=== PATIENT | male | born 1960 | race Native Hawaiian/Other Pacific Islander ===

== ENCOUNTER 2016-04-20 10:20 | Outpatient (CLI) | payer OTHER ==
[2016-04-20] MEDS ORDERED: ASPIRIN325 M1 OR (14:11)
[2016-04-20] MEDS ORDERED: SPIRIVA IN (14:11)
[2016-04-20] MEDS ORDERED: CLOP75TA2 PO (14:11)
[2016-04-20] MEDS ORDERED: ALBUTEROL0.083 % IN (14:12)
[2016-04-20] MEDS ORDERED: DULERA1 AE1 IN (14:12)
[2016-04-20] MEDS ORDERED: TRAM50TA PO (14:12)
== END 2016-04-20 10:21 | disposition home or self-care (01) ==
LOC: AMB 10:20
DX: R06.09 Other forms of dyspnea (principal)
CPT/HCPCS: A0425; A0429

== ENCOUNTER 2016-04-20 10:22 | Inpatient (IN) | payer OTHER ==
[~2016-04-20] VITALS: Ht 160 cm; Wt 63.5 kg
[2016-04-20 10:22] VITALS: BP 128/79; TEMP 98.2
[2016-04-20 12:41] LABS: POTASSIUM 3.8 mmol/L (3.6-5.2); SODIUM 134 mmol/L (136-145)
[2016-04-20 13:50] LABS: PLATELET COUNT 210 K/uL (142-355)
[2016-04-20 14:04] VITALS: BP 129/79
[2016-04-20] MEDS ORDERED: SPIRIVA IN (14:11)
[2016-04-20] MEDS ORDERED: CLOP75TA2 PO (14:11)
[2016-04-20] MEDS ORDERED: ASPIRIN325 M1 OR (14:11)
[2016-04-20] MEDS ORDERED: ALBUTEROL0.083 % IN (14:12)
[2016-04-20] MEDS ORDERED: TRAM50TA PO (14:12)
[2016-04-20] MEDS ORDERED: DULERA1 AE1 IN (14:12)
[2016-04-20 17:33] VITALS: BP 143/85; TEMP 98.6; Ht 160 cm; Wt 63.5 kg
[2016-04-20 20:00] VITALS: BP 135/88; TEMP 97.9
[2016-04-21] VITALS (7 sets, daily range): BP systolic 107–137; BP diastolic 66–80; TEMP 97.5–98.1
[2016-04-21 04:49] LABS: PLATELET COUNT 224 K/uL (142-355)
[2016-04-21 05:09] LABS: POTASSIUM 3.5 mmol/L (3.6-5.2); SODIUM 133 mmol/L (136-145)
[2016-04-22 04:00] VITALS: BP 135/77; TEMP 97.9
[2016-04-22 08:00] VITALS: BP 117/74; TEMP 97.9
[2016-04-22 12:00] VITALS: BP 122/76; TEMP 97.7
== END 2016-04-22 15:24 | disposition home or self-care (01) | DRG 192 ==
LOC: ED 10:22 → MED/SURG 15:04
PROVIDERS: Emergency Medicine; ADMIT Specialist
DX: J44.1 Chronic obstructive pulmonary disease with (acute) exacerbation (principal); R06.09 Other forms of dyspnea; R53.1 Weakness; R52 Pain, unspecified; I25.2 Old myocardial infarction
CPT/HCPCS: 36415; 36600; 80048; 80053; 80307; 82550; 82553; 82805; 83735; 83880; 84100; 84484; 85027; 87804; 93005; 94640; 94664; 94760; 96372; 96374; 99284; G0479; J1644; J1885; J2930

== ENCOUNTER 2018-05-31 13:19 | Outpatient (CLI) | payer OTHER ==
[~2018-05-31 13:19] MED LIST: ALBUTEROL0.083 % IN; ASPIRIN325 M1 OR; CLOP75TA2 PO; DULERA1 AE1 IN; SPIRIVA IN; TRAM50TA PO
== END 2018-05-31 20:28 | disposition home or self-care (01) ==
LOC: US 13:19
DX: R42 Dizziness and giddiness (principal); E04.1 Nontoxic single thyroid nodule

== ENCOUNTER 2018-08-18 08:30 | Outpatient (CLI) | payer OTHER | END 2018-08-18 23:43 | disposition home or self-care (01) | LOC: NM 08:30 | DX: R07.9 Chest pain, unspecified (principal) | CPT/HCPCS: A9500; J2785 ==

== ENCOUNTER 2019-04-12 10:25 | Outpatient (CLI) | payer OTHER ==
[2019-04-12 11:05] LABS: PLATELET COUNT 291 K/uL (142-355)
[2019-04-12 11:07] LABS: POTASSIUM 4.4 mmol/L (3.6-5.2)
== END 2019-04-12 19:21 | disposition home or self-care (01) ==
LOC: LABW 10:25
PROVIDERS: Registered Nurse
DX: E78.49 Other hyperlipidemia (principal); D45 Polycythemia vera; I10 Essential (primary) hypertension; E55.9 Vitamin D deficiency, unspecified; Z79.899 Other long term (current) drug therapy; R53.82 Chronic fatigue, unspecified
CPT/HCPCS: 36415; 80053; 80061; 82306; 84439; 84443; 85027

== ENCOUNTER 2020-05-04 23:10 | Emergency (ER) | payer OTHER ==
[~2020-05-04] VITALS: Ht 160 cm; Wt 63.5 kg
[2020-05-05 00:02] LABS: PLATELET COUNT 293 K/uL (142-355)
[2020-05-05 00:21] LABS: PARTIAL THROMBOPLASTIN TIME 24.4 SECONDS (24.5-33.6)
[2020-05-05 00:23] LABS: POTASSIUM 4.1 mmol/L (3.6-5.2); SODIUM 136 mmol/L (136-145)
[2020-05-05 02:03] VITALS: BP 124/73; TEMP 98.9
== END 2020-05-05 02:05 | disposition home or self-care (01) ==
LOC: ED 23:10
PROVIDERS: Family Medicine
DX: J44.1 Chronic obstructive pulmonary disease with (acute) exacerbation (principal); F17.210 Nicotine dependence, cigarettes, uncomplicated
CPT/HCPCS: 36415; 80053; 82550; 83880; 84484; 85027; 85379; 85610; 85730; 93005; 94640; 94664; 96374; 99284; J2930; Q9963

== ENCOUNTER 2022-03-24 11:16 | Emergency (ER) | payer OTHER ==
[~2022-03-24] VITALS: Ht 160 cm; Wt 72.6 kg
[2022-03-24 11:30] VITALS: TEMP 98.1
[2022-03-24 12:20] LABS: PLATELET COUNT 288 K/uL (142-355)
[2022-03-24 12:31] LABS: POTASSIUM 3.9 mmol/L (3.6-5.2)
[2022-03-24 14:07] LABS: PARTIAL THROMBOPLASTIN TIME 22.6 SECONDS (24.5-33.6)
[2022-03-24 16:00] VITALS: BP 142/83
== END 2022-03-24 16:00 | disposition home or self-care (01) ==
LOC: ED 11:16
PROVIDERS: Emergency Medicine
DX: I21.4 Non-ST elevation (NSTEMI) myocardial infarction (principal); I10 Essential (primary) hypertension; I25.10 Atherosclerotic heart disease of native coronary artery without angina pectoris; F17.210 Nicotine dependence, cigarettes, uncomplicated; Z11.52 Encounter for screening for COVID-19
CPT/HCPCS: 36415; 80053; 84443; 84484; 85027; 85610; 85730; 87635; 93005; 96365; 96375; 99285; J1644; U0003